=== PATIENT | male | born 2000 | race Caucasian/White ===

== ENCOUNTER → 2020-10-25 | Outpatient (REF) ==
--- NOTE | 2020-10-25 14:31 | REP ---
INDICATION: [facility] W/. ATRAUMATIC PAIN COMPARISON: None. TECHNIQUE: AP and lateral views FINDINGS: There is no acute fracture or destructive osseous lesion IMPRESSION: Negative exam <Electronically signed by Panchito Craig > 10/25/20 [id number]
--- NOTE | 2020-10-25 14:35 | REP ---
INDICATION: [facility] W/. COMPARISON: None TECHNIQUE: Multiple views of the lumbosacral spine. FINDINGS: The disc spaces are symmetric and well maintained. Vertebral body height and alignment is normal. The pedicles are intact bilaterally. IMPRESSION: Within normal limits <Electronically signed by Panchito Craig > 10/25/20 [id number]
--- NOTE | 2020-10-25 14:50 | REP ---
INDICATION: [facility] W/ COMPARISON: None TECHNIQUE: Three views bilateral FINDINGS: The compartments are symmetric and relatively well maintained. There is no acute fracture or destructive osseous lesion. IMPRESSION: Within normal limits bilateral <Electronically signed by Panchito Craig > 10/25/20 [id number]
== END ==
LOC: M PLAIMG 12:13
PROVIDERS: ATTEND Internal Medicine
DX: Z00.00 Encounter for general adult medical examination without abnormal findings (principal)

== ENCOUNTER → 2020-12-18 | Outpatient (REF) ==
--- NOTE | 2020-12-18 13:01 | REP ---
INDICATION: SOB. COMPARISON: None. FINDINGS: The superior mediastinal structures are midline. The cardiac silhouette is unremarkable in size, shape, and position. The diaphragmatic surfaces of the lungs are regular, and the costophrenic angles are clear. The pulmonary leal are clear. The imaged osseous structures are intact. IMPRESSION: There is no acute cardiopulmonary disease. <Electronically signed by Panchito Craig > 12/18/20 [id number]
== END ==
LOC: M PLAIMG 10:24
PROVIDERS: ATTEND Internal Medicine
DX: R06.02 Shortness of breath (principal)